=== PATIENT | male | born 1990 | race Asian ===

== ENCOUNTER 2023-07-04 13:12 | Emergency (ER) | payer OTHER ==
[~2023-07-04] VITALS: Ht 172.7 cm; Wt 72.6 kg
[2023-07-04 13:27] VITALS: BP 111/69; PULSE 89; RESP 19; TEMP 98.5; O2SAT 95
[2023-07-04] MEDS ORDERED: diphenhydrAMINE 50 MG/ML VIAL ONE (17:03)
[2023-07-04] MEDS ORDERED: KETOROLAC 30 MG/ML VIAL ONE (17:04)
[2023-07-04] MEDS: ACETAMINOPHEN 325 MG TAB PO ONE (17:15)
[2023-07-04 17:22] LABS: BASOPHILS # (AUTO) 0.1 K/uL (0.00-0.22); BASOPHILS % (AUTO) 0.5 % (0.0-2.0); EOSINOPHILS % (AUTO) 0.2 % (0.0-4.0); HEMATOCRIT 42.4 % (36-52); HEMOGLOBIN 14.2 g/dL (12.0-18.0); LYMPHOCYTES # (AUTO) 1.7 K/uL (2.0-11.5); LYMPHOCYTES % (AUTO) 13.5 % (20.5-51.1); MEAN CORPUSCULAR HEMOGLOBIN 30 pg (27-31); MEAN CORPUSCULAR HGB CONC 34 g/dL (33-37); MEAN CORPUSCULAR VOLUME 88.8 fL (80-94); MONOCYTES # (AUTO) 0.9 K/uL (0.8-1.0); MONOCYTES % (AUTO) 7.1 % (1.7-9.3); NEUTROPHILS # (AUTO) 10.1 K/uL (1.8-7.7); NEUTROPHILS % (AUTO) 78.7 % (42.2-75.2); PLATELET COUNT (AUTO) 176 K/uL (140-450); RED BLOOD CELL COUNT(AUTO) 4.77 MIL/uL (4.20-6.10); WHITE BLOOD COUNT (AUTO) 12.8 K/uL (4.8-10.8)
[2023-07-04] MEDS: NACL 0.9% 1,000 ML IV ONE ×2 (17:22→19:30)
[2023-07-04] MEDS: diphenhydrAMINE 50 MG/ML VIAL IVP ONE (17:22)
[2023-07-04 17:25] LABS: ANION GAP 12.5 (8-16); CALCIUM 8.4 mg/dL (8.5-10.1); CREATININE 1.2 mg/dL (0.6-1.3); POTASSIUM 3.5 mmol/L (3.5-5.1)
[2023-07-04] MEDS: PROCHLORPERAZINE 10 MG/2 ML VIAL IVP ONE (17:26)
[2023-07-04] MEDS: KETOROLAC 30 MG/ML VIAL IVP ONE (17:27)
[2023-07-04 17:33] LABS: FLU A ANTIGEN negative (NEGATIVE)
[2023-07-04 17:34] LABS: FLU B ANTIGEN NEGATIVE (NEGATIVE)
[2023-07-04 17:36] LABS: ALBUMIN 3.6 g/dL (3.4-5.0); BILIRUBIN,DIRECT 0.1 mg/dL (0.0-0.3); TOTAL BILIRUBIN 0.5 mg/dL (0.0-1.0); TOTAL PROTEIN, SERUM 8.7 g/dL (6.4-8.2)
[2023-07-04] MEDS ORDERED: ACET-10509 PO (19:21)
[2023-07-04] MEDS ORDERED: ONDA-188 SL (19:21)
[2023-07-04 19:36] VITALS: O2SAT 98
[2023-07-04 20:34] VITALS: BP 102/68; PULSE 82; RESP 16; TEMP 97.8; O2SAT 99
== END 2023-07-04 20:36 | disposition home or self-care (01) ==
LOC: MED 13:12
DX: B34.9 Viral infection, unspecified (principal); Z20.822 Contact with and (suspected) exposure to COVID-19; R53.1 Weakness; Z79.899 Other long term (current) drug therapy
CPT/HCPCS: 36415; 70450; 71045; 80048; 80076; 85025; 87040; 87426; 87804; 96361; 96374; 96375; 99285; J0780; J1200; J1885; Q0092; J7030